=== PATIENT | female | born 1965 | race African-American/Black ===

== ENCOUNTER 2016-10-23 09:32 | Emergency (ER) | payer OTHER ==
[~2016-10-23] VITALS: Ht 167.6 cm; Wt 75.0 kg
[~2016-10-23 09:32] MED LIST: HYOS0.129 PO; ZOFR4TAB3 SL
[2016-10-23 09:33] VITALS: BP 127/67; PULSE 80; RESP 15; TEMP 98.2; O2SAT 98
[2016-10-23] MEDS ORDERED: SODIUM CHLOR 0.9% 1000 ML INJ 1,000 ML IV SCH (10:11)
[2016-10-23] MEDS ORDERED: SODIUM CHLORIDE 0.9% FLUSH 10 ML FLUSH IV FLUSH PRN (10:15)
[2016-10-23] MEDS ORDERED: PANTOPRAZOLE SODIUM 40 MG VIAL IVP ONE (10:15)
[2016-10-23] MEDS ORDERED: LIDOCAINE VISCOUS 2% SOLN 15 ML UDC PO ONE (10:15)
[2016-10-23] MEDS ORDERED: ONDANSETRON HCL 4 MG/2 ML VIAL IVP ONE (10:15)
[2016-10-23] MEDS ORDERED: ALUMINUM/MAGNESIUM/SIMETH 30 ML CUP PO ONE (10:15)
--- NOTE | 2016-10-23 10:28 | PD ---
HPI Chief Complaint: Dizziness Time Seen by Provider: 10:08 Travel History International Travel<30 days: No Contact w/Intl Traveler<30days: No Traveled to known affect area: No History of Present Illness HPI Patient is a 51-year-old female with reported history of peptic ulcer who presents the emergency department with complaint of nausea, vomiting and lightheadedness. Patient states that she is been ill for the last 3 days with fairly persistent nausea, vomiting. She notes minimal abdominal discomfort. This is primarily within the epigastrium. She has not had any hematemesis, hematochezia. Kadi thomas states that approximate 3 years since her last endoscopy. She is no longer currently on an antacid stating that her prescription ran out. She denies any chest pain, shortness of breath. She describes her lightheadedness as feeling dizzy when she stands up quickly, no vertigo. PFSH Past Medical History Cancer: Yes (cervical) Diminished Hearing: No Gastrointestinal Disorders: Yes (GALLSTONES) GERD: Yes Immunizations Current: No Ulcer: Yes : 3 Para: 3 Dilation and Curettage (D&C): Yes Tubal Ligation: Yes Past Surgical History Cholecystectomy: Yes Gynecologic Surgery: Yes (CONE BX?) Social History Alcohol Use: Yes (OCCAS) Tobacco Use: Yes (5 CIGS/DAY) Substance Use: No Allergies-Medications (Allergen,Severity, Reaction): Coded Allergies: No Known Allergies (Verified , 10/23/16) Reported Meds & Prescriptions Reported Meds & Active Scripts Active No Active Prescriptions or Reported Medications Review of Systems Except as stated in HPI: all other systems reviewed are Neg Physical Exam Narrative GENERAL: Well-appearing female in no acute distress SKIN: Warm and dry. HEAD: Normocephalic. EYES: No scleral icterus. No injection or drainage. ENT: Mucous membranes pink and moist. NECK supple CARDIOVASCULAR: Regular rate and rhythm. No murmur appreciated. RESPIRATORY: No accessory muscle use. Clear to auscultation. Breath sounds equal bilaterally. GASTROINTESTINAL: Abdomen soft, non-tender, nondistended. MUSCULOSKELETAL: Normal gait NEUROLOGICAL: Awake and alert. Moves all extremity's normally. Normal speech. PSYCHIATRIC: Appropriate mood and affect; insight and judgment normal. Data Data Last Documented VS Vital Signs Date Time Temp Pulse Resp B/P Pulse Ox O2 Delivery O2 Flow Rate FiO2 10/23/16 10:25 16 Room Air 10/23/16 09:33 98.2 80 127/67 98 Orders Electrocardiogram (10/23/16 ) Complete Blood Count With Diff (10/23/16 10:11) Comprehensive Metabolic Panel (10/23/16 10:11) Lipase (10/23/16 10:11) Iv Access Insert/Monitor (10/23/16 10:11) Ondansetron Inj (Zofran Inj) (10/23/16 10:15) Sodium Chlor 0.9% 1000 Ml Inj (Ns 1000 M (10/23/16 10:11) Sodium Chloride 0.9% Flush (Ns Flush) (10/23/16 10:15) Pantoprazole Inj (Protonix Inj) (10/23/16 10:15) Al-Mag Hy-Si 40-40-4 Mg/Ml Liq (Mag-Al P (10/23/16 10:15) Lidocaine 2% Viscous (Xylocaine 2% Visco (10/23/16 10:15) Labs Laboratory Tests Test 10/23/16 10:40 White Blood Count 6.1 TH/MM3 Red Blood Count 4.52 MIL/MM3 Hemoglobin 14.5 GM/DL Hematocrit 42.0 % Mean Corpuscular Volume 92.8 FL Mean Corpuscular Hemoglobin 32.1 PG Mean Corpuscular Hemoglobin 34.6 % Concent Red Cell Distribution Width 12.7 % Platelet Count 302 TH/MM3 Mean Platelet Volume 6.8 FL Neutrophils (%) (Auto) 43.1 % Lymphocytes (%) (Auto) 45.7 % Monocytes (%) (Auto) 7.9 % Eosinophils (%) (Auto) 2.7 % Basophils (%) (Auto) 0.6 % Neutrophils # (Auto) 2.6 TH/MM3 Lymphocytes # (Auto) 2.8 TH/MM3 Monocytes # (Auto) 0.5 TH/MM3 Eosinophils # (Auto) 0.2 TH/MM3 Basophils # (Auto) 0.0 TH/MM3 CBC Comment DIFF FINAL Differential Comment Sodium Level 143 MEQ/L Potassium Level 3.7 MEQ/L Chloride Level 109 MEQ/L Carbon Dioxide Level 27.2 MEQ/L Anion Gap 7 MEQ/L Blood Urea Nitrogen 8 MG/DL Creatinine 0.73 MG/DL Estimat Glomerular Filtration 102 ML/MIN Rate Random Glucose 78 MG/DL Calcium Level 9.0 MG/DL Total Bilirubin 0.6 MG/DL Aspartate Amino Transf 16 U/L (AST/SGOT) Alanine Aminotransferase 27 U/L (ALT/SGPT) Alkaline Phosphatase 46 U/L Total Protein 7.0 GM/DL Albumin 3.7 GM/DL Lipase 157 U/L MDM Medical Decision Making Medical Screen Exam Complete: Yes Emergency Medical Condition: Yes Medical Record Reviewed: Yes Differential Diagnosis 51-year-old female with history of PUD, GERD here with complaint of 3 days of nausea, vomiting and slight epigastric discomfort with dizziness/ lightheadedness. Differential includes gastritis, pancreatitis, peptic ulcer disease, less likely hepatobiliary pathology, significant dehydration, electrolyte abnormality. Narrative Course Patient placed on monitor, IV established and blood obtained. A twelve-lead EKG shows sinus rhythm without notable ST abnormalities, normal intervals. Patient was given 1 L normal saline bolus, 4 mg Zofran, IV PPI and GI cocktail. CBC, CMP, lipase unremarkable. Patient felt improved and was able to tolerate oral challenge. Will to be discharged home with PPI. Diagnosis Primary Impression: Gastritis Qualified Code: K29.00 - Acute gastritis without hemorrhage, unspecified gastritis type Additional Impression: Nausea & vomiting Qualified Code: R11.2 - Non-intractable vomiting with nausea, unspecified vomiting type Referrals: Primary Care Physician as needed Patient Instructions: Diet for Stomach Ulcers and Gastritis (ED), Gastritis (ED ), General Instructions Additional Instructions: Antacid as prescribed. Follow-up with primary care provider symptoms persist and return to the ER for the warning signs discussed. Med/Other Pt SpecificInfo: Prescription(s) given Scripts Omeprazole 40 Mg Cap40 Mg PO DAILY #30 CAP Ref 0 Prov:Nan Reeder MD 10/23/16 Disposition: 01 DISCHARGE HOME Condition: Stable Nan Reeder MD Oct 23, 2016 10:28
[2016-10-23 10:54] LABS: AUTOMATED NEUTROPHIL # 2.6 TH/MM3 (1.8-7.7); BASOPHIL % 0.6 % (0.0-2.0); EOSINOPHIL # 0.2 TH/MM3 (0-0.4); EOSINOPHIL % 2.7 % (0.0-4.0); HEMO FLAGS DIFF FINAL; LYMPH % 45.7 % (9.0-44.0); LYMPHOCYTE # 2.8 TH/MM3 (1.0-4.8); MEAN CELL VOLUME 92.8 FL (80.0-100.0); MEAN CORPUSCULAR HEMOGLOBIN 32.1 PG (27.0-34.0); MEAN CORPUSCULAR HGB CONC 34.6 % (32.0-36.0); MONO % 7.9 % (0.0-8.0); NEUT % 43.1 % (16.0-70.0); PLATELET COUNT 302 TH/MM3 (150-450); RED BLOOD COUNT 4.52 MIL/MM3 (4.00-5.30); RED CELL DISTRIBUTION WIDTH 12.7 % (11.6-17.2); WHITE BLOOD COUNT 6.1 TH/MM3 (4.0-11.0)
[2016-10-23 11:17] LABS: ALT (GPT) 27 U/L (10-53); ANION GAP 7 MEQ/L (5-15); AST (GOT) 16 U/L (15-37); BICARBONATE 27.2 MEQ/L (21.0-32.0); BLOOD UREA NITROGEN 8 MG/DL (7-18); CHLORIDE 109 MEQ/L (98-107); GLOMERULAR FILTRATION RATE 102 ML/MIN (>89); POTASSIUM 3.7 MEQ/L (3.5-5.1); SODIUM (NA) 143 MEQ/L (136-145)
[2016-10-23 11:19] LABS: ALKALINE PHOSPHATASE 46 U/L (45-117); TOTAL BILIRUBIN ADULT 0.6 MG/DL (0.2-1.0)
[2016-10-23] MEDS ORDERED: OMEP40CA2 PO (11:22)
[2016-10-23 11:38] VITALS: BP 112/63; PULSE 67; RESP 20; O2SAT 95
--- NOTE | 2016-10-24 10:57 | EKG ---
Date Performed: 10/23/2016 Time Performed: 10:20:05 PTAGE: 51 years EKG: Sinus rhythm NORMAL ECG PREVIOUS TRACING : 04/26/2001 12.04 DOCTOR: Jay Lew Interpretating Date/Time 10/24/2016 10:55:28
== END 2016-10-23 11:52 | disposition home or self-care (01) ==
LOC: NEPB 09:32
DX: K29.00 Acute gastritis without bleeding (principal)
CPT/HCPCS: 80053; 83690; 85025; 93005; 96374; 96375; 99284; C9113; J2405; J7030

== ENCOUNTER 2017-03-07 18:54 | Emergency (ER) | payer OTHER ==
[~2017-03-07] VITALS: Ht 167.6 cm; Wt 65.0 kg
[~2017-03-07 18:54] MED LIST changes: -HYOS0.129 PO; +OMEP40CA2 PO; -ZOFR4TAB3 SL
[2017-03-07 18:58] VITALS: BP 114/70; PULSE 83; RESP 16; TEMP 97.9; O2SAT 100
[2017-03-07] MEDS ORDERED: SODIUM CHLOR 0.9% 1000 ML INJ 1,000 ML IV ONE (19:22)
[2017-03-07 19:29] VITALS: BP 110/67; PULSE 70; RESP 16; O2SAT 99
[2017-03-07] MEDS ORDERED: diphenhydrAMINE HCL 50 MG/ML VIAL IVP ONE (19:30)
[2017-03-07] MEDS ORDERED: METOCLOPRAMIDE HCL 10 MG/2 ML VIAL IVP ONE (19:30)
[2017-03-07] MEDS ORDERED: PANTOPRAZOLE SODIUM 40 MG VIAL IV PUSH ONE (19:30)
[2017-03-07] MEDS ORDERED: ACETAMINOPHEN 325 MG TAB PO ONE (19:30)
--- NOTE | 2017-03-07 19:38 | PD ---
HPI Chief Complaint: GI Complaint Time Seen by Provider: 21:20 Travel History International Travel<30 days: No Contact w/Intl Traveler<30days: No Traveled to known affect area: No History of Present Illness HPI 51-year-old female with history of peptic ulcer disease resents for evaluation of nausea, vomiting, headache. She reports that for the past 3 days she has had approximately 2-3 episodes of nonbloody nonbilious emesis. She has also had a right-sided frontal headache which she rates as a 6 out of 10 on the pain scale. She denies any thunderclap nature of this headache. She describes it as a throbbing sensation which is improved with use of [id number] BC powder. She feels that the nausea and vomiting are related to her peptic ulcer disease. She reports that she has had this issue in the past. She quit taking her prescribed omeprazole one month ago because she feels that she does not have the time to take it. She denies blurred vision, numbness or tingling or weakness in the face with the extremities, chest pain or shortness of breath, fevers or chills, diarrhea or constipation, recent dietary changes. She has no other complaints at this time. PFSH Past Medical History Cancer: Yes (cervical) Diminished Hearing: No Gastrointestinal Disorders: Yes (GALLSTONES) GERD: Yes Immunizations Current: Yes Ulcer: Yes ?: Not : 3 Para: 3 Miscarriage: 0 : 0 Dilation and Curettage (D&C): Yes Tubal Ligation: Yes Past Surgical History Cholecystectomy: Yes Gynecologic Surgery: Yes ([facility] BX) Social History Alcohol Use: No Tobacco Use: Yes (1 PACK EVERY 2 WEEKS) Substance Use: No Allergies-Medications (Allergen,Severity, Reaction): Coded Allergies: No Known Allergies (Verified , 01/06/17) Reported Meds & Prescriptions Reported Meds & Active Scripts Active Zofran (Ondansetron HCl) 4 Mg Tab 4 Mg PO Q6HR PRN Omeprazole 40 Mg Cap 40 Mg PO DAILY Review of Systems Except as stated in HPI: all other systems reviewed are Neg Physical Exam Narrative GENERAL: Pleasant well-developed well-nourished female in no acute distress resting comfortably in hospital bed. SKIN: Warm and dry. HEAD: Atraumatic. Normocephalic. EYES: Pupils equal and round. No scleral icterus. No injection or drainage. ENT: No nasal bleeding or discharge. Mucous membranes pink and moist. NECK: Trachea midline. No JVD. CARDIOVASCULAR: Regular rate and rhythm. No murmur appreciated. RESPIRATORY: No accessory muscle use. Clear to auscultation. Breath sounds equal bilaterally. GASTROINTESTINAL: Abdomen soft, non-tender, nondistended. Hepatic and splenic margins not palpable. MUSCULOSKELETAL: No obvious deformities. No edema. NEUROLOGICAL: Awake and alert. No obvious cranial nerve deficits. Motor grossly within normal limits. Normal speech. PSYCHIATRIC: Appropriate mood and affect; insight and judgment normal. Data Data Last Documented VS Vital Signs Date Time Temp Pulse Resp B/P Pulse Ox O2 Delivery O2 Flow Rate FiO2 03/07/17 19:29 70 16 110/67 99 Room Air 03/07/17 18:58 97.9 Orders Complete Blood Count With Diff (03/07/17 19:22) Comprehensive Metabolic Panel (03/07/17 19:22) Iv Access Insert/Monitor (03/07/17 19:22) Acetaminophen (Tylenol) (03/07/17 19:30) Diphenhydramine Inj (Benadryl Inj) (03/07/17 19:30) Metoclopramide Inj (Reglan Inj) (03/07/17 19:30) Sodium Chlor 0.9% 1000 Ml Inj (Ns 1000 M (03/07/17 19:22) Lipase (03/07/17 19:22) Pantoprazole Inj (Protonix Inj) (03/07/17 19:30) Labs Laboratory Tests Test 03/07/17 20:12 White Blood Count 8.5 TH/MM3 Red Blood Count 4.36 MIL/MM3 Hemoglobin 14.0 GM/DL Hematocrit 40.7 % Mean Corpuscular Volume 93.2 FL Mean Corpuscular Hemoglobin 32.0 PG Mean Corpuscular Hemoglobin 34.4 % Concent Red Cell Distribution Width 12.3 % Platelet Count 339 TH/MM3 Mean Platelet Volume 6.8 FL Neutrophils (%) (Auto) 45.2 % Lymphocytes (%) (Auto) 44.5 % Monocytes (%) (Auto) 7.7 % Eosinophils (%) (Auto) 1.7 % Basophils (%) (Auto) 0.9 % Neutrophils # (Auto) 3.9 TH/MM3 Lymphocytes # (Auto) 3.8 TH/MM3 Monocytes # (Auto) 0.7 TH/MM3 Eosinophils # (Auto) 0.1 TH/MM3 Basophils # (Auto) 0.1 TH/MM3 CBC Comment DIFF FINAL Differential Comment Sodium Level 140 MEQ/L Potassium Level 3.8 MEQ/L Chloride Level 105 MEQ/L Carbon Dioxide Level 28.6 MEQ/L Anion Gap 6 MEQ/L Blood Urea Nitrogen 12 MG/DL Creatinine 0.91 MG/DL Estimat Glomerular Filtration 79 ML/MIN Rate Random Glucose 66 MG/DL Calcium Level 9.0 MG/DL Total Bilirubin 0.4 MG/DL Aspartate Amino Transf 19 U/L (AST/SGOT) Alanine Aminotransferase 26 U/L (ALT/SGPT) Alkaline Phosphatase 52 U/L Total Protein 6.9 GM/DL Albumin 3.6 GM/DL Lipase 173 U/L MDM Medical Decision Making Medical Screen Exam Complete: Yes Emergency Medical Condition: Yes Medical Record Reviewed: Yes Differential Diagnosis Gastritis, peptic ulcer disease, gastroenteritis, migraine without aura, temporal arteritis, subarachnoid hemorrhage, intracranial mass, pseudotumor cerebri, cluster headache, meningitis, encephalitis, pancreatitis, dehydration, electrolyte abnormality Narrative Course 51-year-old female history of peptic ulcer disease, noncompliant with her prescribed proton pump inhibitors, presents now with 2-3 days of 3 episodes of nonbloody emesis today as well as a right-sided frontal headache. She rates a 6 out of 10 on a pain scale. Physical examination is very reassuring. She has no focal neurologic deficits. I don't suspect subarachnoid hemorrhage, temporal arteritis as an etiology. She does not appear acutely dehydrated. Her abdomen is soft and nontender. She reports that she has had similar symptoms in the past which she has attributed to her peptic ulcer disease. She is not currently having any abdominal pain but she does report that she had some in the epigastrium/left upper quadrant yesterday. Plan is for basic lab work, IV fluids, Reglan, Benadryl, Tylenol. She will be given IV Protonix. She will be reassessed. 2100: Upon reexamination the patient feels significantly improved. Her headache has resolved. Her lab work is unremarkable. The patient will be discharged with a short course of Zofran to use as needed for nausea. Recommended restarting her prescribed Protonix. Diagnosis Primary Impression: Nausea & vomiting Qualified Code: R11.2 - Non-intractable vomiting with nausea, unspecified vomiting type Additional Impression: Headache Qualified Code: R51 - Acute nonintractable headache, unspecified headache type Additional Instructions: Zofran for nausea. Take Protonix as prescribed. Stay well hydrated. Return for any emergent medical conditions. Med/Other Pt SpecificInfo: Prescription(s) given Scripts Ondansetron (Zofran)4 Mg Tab4 Mg PO Q6HR PRN (NAUSEA OR VOMITING) #10 TAB Ref 0 Prov:Tegan Hernandez MD 03/07/17 Disposition: 01 DISCHARGE HOME Condition: Stable [address] Lane Mar 07, 2017 19:38
[2017-03-07 20:29] LABS: AUTOMATED NEUTROPHIL # 3.9 TH/MM3 (1.8-7.7); BASOPHIL # 0.1 TH/MM3 (0-0.2); BASOPHIL % 0.9 % (0.0-2.0); EOSINOPHIL # 0.1 TH/MM3 (0-0.4); EOSINOPHIL % 1.7 % (0.0-4.0); HEMATOCRIT 40.7 % (35.0-46.0); HEMO FLAGS DIFF FINAL; LYMPH % 44.5 % (9.0-44.0); LYMPHOCYTE # 3.8 TH/MM3 (1.0-4.8); MEAN CELL VOLUME 93.2 FL (80.0-100.0); MEAN CORPUSCULAR HGB CONC 34.4 % (32.0-36.0); MONO % 7.7 % (0.0-8.0); NEUT % 45.2 % (16.0-70.0); PLATELET COUNT 339 TH/MM3 (150-450); RED BLOOD COUNT 4.36 MIL/MM3 (4.00-5.30); RED CELL DISTRIBUTION WIDTH 12.3 % (11.6-17.2); WHITE BLOOD COUNT 8.5 TH/MM3 (4.0-11.0)
[2017-03-07 20:56] LABS: ALT (GPT) 26 U/L (10-53)
[2017-03-07 20:57] LABS: ANION GAP 6 MEQ/L (5-15); AST (GOT) 19 U/L (15-37); BICARBONATE 28.6 MEQ/L (21.0-32.0); BLOOD UREA NITROGEN 12 MG/DL (7-18); CHLORIDE 105 MEQ/L (98-107); GLOMERULAR FILTRATION RATE 79 ML/MIN (>89); POTASSIUM 3.8 MEQ/L (3.5-5.1); SODIUM (NA) 140 MEQ/L (136-145)
[2017-03-07 20:58] LABS: ALKALINE PHOSPHATASE 52 U/L (45-117); TOTAL BILIRUBIN ADULT 0.4 MG/DL (0.2-1.0)
[2017-03-07] MEDS ORDERED: ZOFR4TAB PO (21:01)
== END 2017-03-07 21:47 | disposition home or self-care (01) ==
LOC: NEPD 18:54
DX: R11.2 Nausea with vomiting, unspecified (principal); R51 Headache; F17.210 Nicotine dependence, cigarettes, uncomplicated; K21.9 Gastro-esophageal reflux disease without esophagitis
CPT/HCPCS: 80053; 83690; 85025; 96361; 96374; 96375; 99284; C9113; J1200; J2765; J7030

== ENCOUNTER 2017-08-17 09:12 | Emergency (ER) | payer BC, OTHER ==
[~2017-08-17] VITALS: Ht 165.1 cm; Wt 75.0 kg
[~2017-08-17 09:12] MED LIST changes: +ZOFR4TAB PO
[2017-08-17 09:13] VITALS: BP 120/84; PULSE 83; RESP 16; TEMP 98.7; O2SAT 100
[2017-08-17] MEDS ORDERED: ZANT150T2 PO (09:28)
[2017-08-17] MEDS ORDERED: SODIUM CHLOR 0.9% 1000 ML INJ 1,000 ML IV ONE (09:58)
[2017-08-17] MEDS ORDERED: SODIUM CHLORIDE 0.9% FLUSH 10 ML FLUSH IVF PRN (10:00)
[2017-08-17] MEDS ORDERED: ONDANSETRON HCL 4 MG/2 ML VIAL IV PUSH ONE (10:00)
--- NOTE | 2017-08-17 10:09 | PD ---
HPI Chief Complaint: GI Complaint Time Seen by Provider: 09:54 Travel History International Travel<30 days: No Contact w/Intl Traveler<30days: No Traveled to known affect area: No History of Present Illness HPI The patient was seen and examined in the presence of the nurse. She complains of nausea and vomiting. Duration 3 days. Severity is moderate. No diarrhea. No abdominal pain or fever. No alleviating factors. No exacerbating factors. She does have history of peptic ulcer disease and thinks that may be related. PFSH Past Medical History Cancer: Yes (cervical) Diminished Hearing: No Gastrointestinal Disorders: Yes (GALLSTONES) GERD: Yes Immunizations Current: Yes Ulcer: Yes Tetanus Vaccination: > 5 Years Influenza Vaccination: No ?: Not : 3 Para: 3 Miscarriage: 0 : 0 Dilation and Curettage (D&C): Yes Tubal Ligation: Yes Past Surgical History Cholecystectomy: Yes Gynecologic Surgery: Yes (CON[facility] BX) Social History Alcohol Use: No Tobacco Use: Yes (1 PACK EVERY 1 WEEK) Substance Use: No Allergies-Medications (Allergen,Severity, Reaction): Coded Allergies: No Known Allergies (Verified Adverse Reaction, Unknown, 08/17/17) Reported Meds & Prescriptions Reported Meds & Active Scripts Active Zofran (Ondansetron HCl) 4 Mg Tab 4 Mg PO Q6HR PRN Omeprazole 40 Mg Cap 40 Mg PO DAILY Reported Zantac (Ranitidine HCl) 150 Mg Tab 75 Mg PO DAILY Review of Systems General / Constitutional: No: Fever Eyes: No: Visual changes HENT: No: Headaches Cardiovascular: No: Chest Pain or Discomfort Respiratory: No: Shortness of Breath Gastrointestinal: Positive: Nausea, Vomiting, No: Abdominal Pain Genitourinary: No: Dysuria Musculoskeletal: No: Pain Skin: No Rash Neurologic: No: Weakness Psychiatric: No: Depression Endocrine: No: Polydipsia Hematologic/Lymphatic: No: Easy Bruising Physical Exam Narrative GENERAL: Well-nourished, well-developed patient in no apparent distress. SKIN: Focused skin assessment reveals no rash and nodules. Skin is Warm and dry. HEAD: Atraumatic. Normocephalic. EYES: Pupils equal and round. No scleral icterus. No injection or drainage. ENT: No nasal bleeding or discharge. Mucous membranes pink and moist. NECK: Trachea midline. No JVD. CARDIOVASCULAR: Regular rate and rhythm. No murmur appreciated. RESPIRATORY: No accessory muscle use. Clear to auscultation. Breath sounds equal bilaterally. GASTROINTESTINAL: Abdomen soft, non-tender, nondistended. Hepatic and splenic margins not palpable. MUSCULOSKELETAL: No obvious deformities. No clubbing. No cyanosis. No edema. NEUROLOGICAL: Awake and alert. No obvious cranial nerve deficits. Motor grossly within normal limits. Normal speech. PSYCHIATRIC: Appropriate mood and affect; insight and judgment normal. Data Data Last Documented VS Vital Signs Date Time Temp Pulse Resp B/P (MAP) Pulse Ox O2 Delivery O2 Flow Rate FiO2 08/17/17 09:13 98.7 83 16 120/84 (96) 100 Orders Orders Complete Blood Count With Diff (08/17/17 09:58) Basic Metabolic Panel (Bmp) (08/17/17 09:58) Iv Access Insert/Monitor (08/17/17 09:58) Ondansetron Inj (Zofran Inj) (08/17/17 10:00) Sodium Chlor 0.9% 1000 Ml Inj (Ns 1000 M (08/17/17 09:58) Sodium Chloride 0.9% Flush (Ns Flush) (08/17/17 10:00) Labs Laboratory Tests Test 08/17/17 10:10 White Blood Count 6.0 TH/MM3 Red Blood Count 4.62 MIL/MM3 Hemoglobin 15.1 GM/DL Hematocrit 44.1 % Mean Corpuscular Volume 95.4 FL Mean Corpuscular Hemoglobin 32.6 PG Mean Corpuscular Hemoglobin Concent 34.2 % Red Cell Distribution Width 12.7 % Platelet Count 338 TH/MM3 Mean Platelet Volume 6.6 FL Neutrophils (%) (Auto) 42.9 % Lymphocytes (%) (Auto) 46.4 % Monocytes (%) (Auto) 6.2 % Eosinophils (%) (Auto) 3.9 % Basophils (%) (Auto) 0.6 % Neutrophils # (Auto) 2.6 TH/MM3 Lymphocytes # (Auto) 2.8 TH/MM3 Monocytes # (Auto) 0.4 TH/MM3 Eosinophils # (Auto) 0.2 TH/MM3 Basophils # (Auto) 0.0 TH/MM3 CBC Comment DIFF FINAL Differential Comment Blood Urea Nitrogen 13 MG/DL Creatinine 0.85 MG/DL Random Glucose 82 MG/DL Calcium Level 9.3 MG/DL Sodium Level 140 MEQ/L Potassium Level 3.4 MEQ/L Chloride Level 107 MEQ/L Carbon Dioxide Level 25.5 MEQ/L Anion Gap 8 MEQ/L Estimat Glomerular Filtration Rate 85 ML/MIN MDM Medical Decision Making Medical Screen Exam Complete: Yes Emergency Medical Condition: Yes Medical Record Reviewed: Yes Differential Diagnosis Gastroenteritis, colitis, ulcer disease Narrative Course I have reviewed the patient's electronic medical record. She's been here several times before for vomiting. IV placed I gave her IV Zofran and 1 L normal saline IV bolus CBC is normal Metabolic profile normal except for minor hypokalemia On recheck she is doing well. She is euvolemic Zofran prescribed Diagnosis Primary Impression: Nausea & vomiting Qualified Codes: R11.2 - Nausea with vomiting, unspecified Additional Instructions: The patient was advised to follow up with their physician and return if they worsen. Med/Other Pt SpecificInfo: Prescription(s) given Scripts Ondansetron (Zofran) 4 Mg Tab 4 MG PO Q6HR Y for NAUSEA OR VOMITING, #10 TAB 0 Refills Prov: Derik Frias MD 08/17/17 Disposition: 01 DISCHARGE HOME Condition: Stable Derik Frias MD Aug 17, 2017 10:09
[2017-08-17 10:27] LABS: AUTOMATED NEUTROPHIL # 2.6 TH/MM3 (1.8-7.7); BASOPHIL % 0.6 % (0.0-2.0); EOSINOPHIL # 0.2 TH/MM3 (0-0.4); EOSINOPHIL % 3.9 % (0.0-4.0); HEMATOCRIT 44.1 % (35.0-46.0); HEMOGLOBIN 15.1 GM/DL (11.6-15.3); LYMPH % 46.4 % (9.0-44.0); LYMPHOCYTE # 2.8 TH/MM3 (1.0-4.8); MEAN CELL VOLUME 95.4 FL (80.0-100.0); MEAN CORPUSCULAR HEMOGLOBIN 32.6 PG (27.0-34.0); MEAN CORPUSCULAR HGB CONC 34.2 % (32.0-36.0); MEAN PLATELET VOLUME 6.6 FL (7.0-11.0); MONO % 6.2 % (0.0-8.0); MONOCYTE # 0.4 TH/MM3 (0-0.9); NEUT % 42.9 % (16.0-70.0); PLATELET COUNT 338 TH/MM3 (150-450); RED BLOOD COUNT 4.62 MIL/MM3 (4.00-5.30); RED CELL DISTRIBUTION WIDTH 12.7 % (11.6-17.2)
[2017-08-17 10:41] LABS: BICARBONATE 25.5 MEQ/L (21.0-32.0); CALCIUM 9.3 MG/DL (8.5-10.1); CREATININE 0.85 MG/DL (0.50-1.00)
[2017-08-17 11:30] VITALS: BP 117/69; PULSE 80; RESP 19; O2SAT 99
[2017-08-17] MEDS ORDERED: ZOFR4TAB PO (11:33)
== END 2017-08-17 12:28 | disposition home or self-care (01) ==
LOC: NEPE 09:12
DX: R11.2 Nausea with vomiting, unspecified (principal); K21.9 Gastro-esophageal reflux disease without esophagitis; F17.200 Nicotine dependence, unspecified, uncomplicated; Z87.11 Personal history of peptic ulcer disease
CPT/HCPCS: 80048; 85025; 96361; 96374; 99284; J2405; J7030

== ENCOUNTER 2017-12-30 19:40 | Observation (INO) | payer SELFPAY ==
[~2017-12-30] VITALS: Ht 167.6 cm; Wt 75.0 kg
[~2017-12-30 19:40] MED LIST changes: +ZANT150T2 PO
[2017-12-30 19:49] VITALS: BP 138/91; PULSE 106; RESP 20; TEMP 97.9; O2SAT 100
[2017-12-30] MEDS ORDERED: ASPIRIN 325 MG TAB PO ONE (20:15)
[2017-12-30] MEDS ORDERED: SODIUM CHLORIDE 0.9% FLUSH 10 ML FLUSH IVF PRN (20:15)
[2017-12-30 20:20] VITALS: BP 115/77; PULSE 91; RESP 18; O2SAT 100
[2017-12-30] MEDS ORDERED: NITROGLYCERIN 0.4 MG SL 25 TABS/BTL SL ONE (20:30)
--- NOTE | 2017-12-30 20:39 | RADRPT ---
EXAM DATE: 12/30/2017 8:36 PM EDT AGE/SEX: 52 years / Female INDICATIONS: Chest pain CLINICAL DATA: This is the patient's initial encounter. Patient reports that signs and symptoms have been present for 1 day and indicates a pain score of 3/10. MEDICAL/SURGICAL HISTORY: Chronic obstructive pulmonary disease. None. COMPARISON: No prior [facility] exams available for comparison. FINDINGS: Portable AP view of the chest demonstrates a normal-sized cardiac silhouette. The lungs demonstrate n o definite effusion, consolidation, or pneumothorax. The bones and soft tissues demonstrate no acute finding. EKG lines overlie the patient. CONCLUSION: No acute cardiopulmonary abnormality is identified. Electronically signed by: Harry Mattson MD 12/30/2017 8:37 PM EDT
[2017-12-30 21:01] LABS: BASOPHIL % 0.6 % (0.0-2.0); EOSINOPHIL # 0.2 TH/MM3 (0-0.4); EOSINOPHIL % 2.1 % (0.0-4.0); HEMATOCRIT 41.7 % (35.0-46.0); HEMOGLOBIN 14.5 GM/DL (11.6-15.3); LYMPH % 52.1 % (9.0-44.0); MEAN CELL VOLUME 92.4 FL (80.0-100.0); MEAN CORPUSCULAR HEMOGLOBIN 32.2 PG (27.0-34.0); MEAN CORPUSCULAR HGB CONC 34.8 % (32.0-36.0); MONO % 6.1 % (0.0-8.0); MONOCYTE # 0.5 TH/MM3 (0-0.9); NEUT % 39.1 % (16.0-70.0); PLATELET COUNT 323 TH/MM3 (150-450); RED BLOOD COUNT 4.51 MIL/MM3 (4.00-5.30); RED CELL DISTRIBUTION WIDTH 12.6 % (11.6-17.2); WHITE BLOOD COUNT 7.6 TH/MM3 (4.0-11.0)
[2017-12-30 21:29] LABS: ALBUMIN 3.7 GM/DL (3.4-5.0); AST (GOT) 18 U/L (15-37); BICARBONATE 19.7 MEQ/L (21.0-32.0); BLOOD UREA NITROGEN 12 MG/DL (7-18); CALCIUM 9.1 MG/DL (8.5-10.1); CHLORIDE 110 MEQ/L (98-107); GLOMERULAR FILTRATION RATE 63 ML/MIN (>89); GLUCOSE,RANDOM 103 MG/DL (74-106); SODIUM (NA) 141 MEQ/L (136-145)
[2017-12-30 21:30] LABS: ALT (GPT) 28 U/L (10-53)
[2017-12-30 21:34] LABS: ALKALINE PHOSPHATASE 51 U/L (45-117); TOTAL BILIRUBIN ADULT 0.4 MG/DL (0.2-1.0); TOTAL PROTEIN 7.2 GM/DL (6.4-8.2); TROPONIN I LESS THAN 0.02 NG/ML (0.02-0.05)
[2017-12-30 21:40] LABS: PROTHROMBIN TIME - PATIENT 10.4 SEC (9.8-11.6)
--- NOTE | 2017-12-30 21:43 | PD ---
HPI Chief Complaint: Chest Pain Time Seen by Provider: 20:10 Travel History International Travel<30 days: No Contact w/Intl Traveler<30days: No Traveled to known affect area: No History of Present Illness HPI 52-year-old female that presents to the ED for evaluation of chest pain and shortness of breath. Per patient she has had this about 30 minutes before coming. Per patient she was at work when the pain started. Per patient the pain is sharp and is 7 out of 10. Denies any history of this in the past. Denies any nausea or vomiting. No bowel movement issues. No drug abuse but states having a history of smoking. She states that the pain stays mostly in the chest as well as radiate to the back. Denies any headache. No blurred vision or double vision. Has not taken anything for this. Nothing seems to make it better or worse. She did not took anything for this. She does have a history of peptic ulcer disease and takes medications for this but states that this feels different. No abdominal pain. No bowel movement or urinary issues. No recent travel. Denies possibility of . No history of heart disease on herself. No recent travel or surgeries. PFSH Past Medical History Cancer: Yes (cervical) Diminished Hearing: No Gastrointestinal Disorders: Yes (GALLSTONES) GERD: Yes Immunizations Current: Yes Ulcer: Yes Tetanus Vaccination: Unknown ?: Not : 3 Para: 3 Miscarriage: 0 : 0 Dilation and Curettage (D&C): Yes Tubal Ligation: Yes Past Surgical History Cholecystectomy: Yes Gynecologic Surgery: Yes (CON[facility] BX) Social History Alcohol Use: No Tobacco Use: Yes (1 PACK EVERY 1 WEEK) Substance Use: No Allergies-Medications (Allergen,Severity, Reaction): Coded Allergies: No Known Allergies (Verified Adverse Reaction, Unknown, 12/30/17) Reported Meds & Prescriptions Reported Meds & Active Scripts Active Review of Systems Except as stated in HPI: all other systems reviewed are Neg Physical Exam Narrative GENERAL: SKIN: Warm and dry. HEAD: Atraumatic. Normocephalic. EYES: Pupils equal and round. No scleral icterus. No injection or drainage. ENT: No nasal bleeding or discharge. Mucous membranes pink and moist. Tongue is midline. No uvula deviation. NECK: Trachea midline. No JVD. CARDIOVASCULAR: Regular rate and rhythm. No murmurs, S3, S4. RESPIRATORY: No accessory muscle use. Clear to auscultation. Breath sounds equal bilaterally. GASTROINTESTINAL: Abdomen soft, non-tender, nondistended. Hepatic and splenic margins not palpable. MUSCULOSKELETAL: Extremities without clubbing, cyanosis, or edema. No obvious deformities. Full range of motion of the upper and lower extremities bilaterally. 2+ pulses bilaterally. NEUROLOGICAL: Awake and alert. No obvious cranial nerve deficits. Motor grossly within normal limits. Five out of 5 muscle strength in the arms and legs. Normal speech. PSYCHIATRIC: Appropriate mood and affect; insight and judgment normal. Data Data Last Documented VS Vital Signs Date Time Temp Pulse Resp B/P (MAP) Pulse Ox O2 Delivery O2 Flow Rate FiO2 12/30/17 20:20 91 18 115/77 (90) 100 Room Air 12/30/17 19:49 97.9 Orders Orders Electrocardiogram (12/30/17 ) Ckmb (Isoenzyme) Profile (12/30/17 20:15) Complete Blood Count With Diff (12/30/17 20:15) Comprehensive Metabolic Panel (12/30/17 20:15) Magnesium (Mg) (12/30/17 20:15) Troponin I (12/30/17 20:15) Lipase (12/30/17 20:15) Chest, Single Ap (12/30/17 20:15) Ecg Monitoring (12/30/17 20:15) Bilateral Bp Monitoring (12/30/17 20:15) Iv Access Insert/Monitor (12/30/17 20:15) Oximetry (12/30/17 20:15) Oxygen Administration (12/30/17 20:15) Aspirin (Aspirin) (12/30/17 20:15) Sodium Chloride 0.9% Flush (Ns Flush) (12/30/17 20:15) Nitroglycerin Sl (Nitrostat Sl) (12/30/17 20:30) D-Dimer (12/30/17 20:22) Coag Profile (12/30/17 21:21) CKMB (12/30/17 20:40) CKMB% (12/30/17 20:40) Morphine Inj (Morphine Inj) (12/30/17 21:45) Ondansetron Odt (Zofran Odt) (12/30/17 21:45) Ketorolac Inj (Toradol Inj) (12/30/17 22:15) Admit Order (Ed Use Only) (12/30/17 22:18) Labs Laboratory Tests Test 12/30/17 20:40 White Blood Count 7.6 TH/MM3 Red Blood Count 4.51 MIL/MM3 Hemoglobin 14.5 GM/DL Hematocrit 41.7 % Mean Corpuscular Volume 92.4 FL Mean Corpuscular Hemoglobin 32.2 PG Mean Corpuscular Hemoglobin Concent 34.8 % Red Cell Distribution Width 12.6 % Platelet Count 323 TH/MM3 Mean Platelet Volume 7.0 FL Neutrophils (%) (Auto) 39.1 % Lymphocytes (%) (Auto) 52.1 % Monocytes (%) (Auto) 6.1 % Eosinophils (%) (Auto) 2.1 % Basophils (%) (Auto) 0.6 % Neutrophils # (Auto) 3.0 TH/MM3 Lymphocytes # (Auto) 4.0 TH/MM3 Monocytes # (Auto) 0.5 TH/MM3 Eosinophils # (Auto) 0.2 TH/MM3 Basophils # (Auto) 0.0 TH/MM3 CBC Comment DIFF FINAL Differential Comment Prothrombin Time 10.4 SEC Prothromb Time International Ratio 1.0 RATIO Activated Partial Thromboplast Time 26.3 SEC D-Dimer Quantitative (PE/DVT) LESS THAN 0.19 MG/L FEU Blood Urea Nitrogen 12 MG/DL Creatinine 1.10 MG/DL Random Glucose 103 MG/DL Total Protein 7.2 GM/DL Albumin 3.7 GM/DL Calcium Level 9.1 MG/DL Magnesium Level 2.0 MG/DL Alkaline Phosphatase 51 U/L Aspartate Amino Transf (AST/SGOT) 18 U/L Alanine Aminotransferase (ALT/SGPT) 28 U/L Total Bilirubin 0.4 MG/DL Sodium Level 141 MEQ/L Potassium Level 3.5 MEQ/L Chloride Level 110 MEQ/L Carbon Dioxide Level 19.7 MEQ/L Anion Gap 11 MEQ/L Estimat Glomerular Filtration Rate 63 ML/MIN Total Creatine Kinase 123 U/L Creatine Kinase MB 0.7 NG/ML Troponin I LESS THAN 0.02 NG/ML Lipase 130 U/L [facility] Medical Decision Making Medical Screen Exam Complete: Yes Emergency Medical Condition: Yes Medical Record Reviewed: Yes Interpretation(s) EKG shows sinus rhythm with no sign of acute ischemia or arrhythmia read by me and attending. Troponin and CK-MB negative. CBC & BMP Diagram 12/30/17 20:40 Total Protein 7.2, Albumin 3.7, Calcium Level 9.1, Magnesium Level 2.0, Alkaline Phosphatase 51, Aspartate Amino Transf (AST/SGOT) 18, Alanine Aminotransferase (ALT/SGPT) 28, Total Bilirubin 0.4 Last Impressions Chest X-Ray 12/30/172014 Signed Impressions: CONCLUSION: No acute cardiopulmonary abnormality is identified. Differential Diagnosis Chest pain versus a typical chest pain versus ACS versus PE versus peptic ulcer disease versus gastritis Narrative Course 52-year-old female that presents to the ED for evaluation of chest pain. Patient was properly examined and was found to have signs and symptoms hypercoagulable concerning for chest pain. Possible ACS. She does have risk factors. Labs and imaging order. Patient was given aspirin and nitroglycerin with some improvement. She was given morphine as well. Labs and imaging showed no sign of acute disease. Patient's pain improved. This time her condition is for admission for further evaluation. Patient agrees with this. Case discussed with my attending Dr. Will who evaluated the patient herself and agrees with plan. Patient was admitted to chest pain center by me. Orders placed by me. Diagnosis Primary Impression: Chest pain in adult Admitting Information Admitting Physician Requests: Observation Ronak Carlos December 30, 2017 21:43
[2017-12-30] MEDS ORDERED: ONDANSETRON ODT 4 MG TAB PO ONE (21:45)
[2017-12-30] MEDS ORDERED: MORPHINE SULFATE 4 MG/ML INJ IV PUSH ONE (21:45)
--- NOTE | 2017-12-30 22:07 | PD ---
Physical Exam Date Seen by Provider: December 30, 2017 Time Seen by Provider: 22:03 Narrative GENERAL: Well-developed well-nourished female no acute distress no respiratory distress SKIN: Warm and dry. HEAD: Normocephalic. EYES: No scleral icterus. No injection or drainage. NECK: Supple, trachea midline. No JVD or lymphadenopathy. CARDIOVASCULAR: Regular rate and rhythm without murmurs, gallops, or rubs. RESPIRATORY: Breath sounds equal bilaterally. No accessory muscle use. GASTROINTESTINAL: Abdomen soft, non-tender, nondistended. MUSCULOSKELETAL: No cyanosis, or edema. Radial dorsalis pedis pulses 2+ to palpation BACK: Nontender without obvious deformity. No CVA tenderness. Data Data Last Documented VS Vital Signs Date Time Temp Pulse Resp B/P (MAP) Pulse Ox O2 Delivery O2 Flow Rate FiO2 12/30/17 20:20 91 18 115/77 (90) 100 Room Air 12/30/17 19:49 97.9 Orders Orders Electrocardiogram (12/30/17 ) Ckmb (Isoenzyme) Profile (12/30/17 20:15) Complete Blood Count With Diff (12/30/17 20:15) Comprehensive Metabolic Panel (12/30/17 20:15) Magnesium (Mg) (12/30/17 20:15) Troponin I (12/30/17 20:15) Lipase (12/30/17 20:15) Chest, Single Ap (12/30/17 20:15) Ecg Monitoring (12/30/17 20:15) Bilateral Bp Monitoring (12/30/17 20:15) Iv Access Insert/Monitor (12/30/17 20:15) Oximetry (12/30/17 20:15) Oxygen Administration (12/30/17 20:15) Aspirin (Aspirin) (12/30/17 20:15) Sodium Chloride 0.9% Flush (Ns Flush) (12/30/17 20:15) Nitroglycerin Sl (Nitrostat Sl) (12/30/17 20:30) D-Dimer (12/30/17 20:22) Coag Profile (12/30/17 21:21) CKMB (12/30/17 20:40) CKMB% (12/30/17 20:40) Morphine Inj (Morphine Inj) (12/30/17 21:45) Ondansetron Odt (Zofran Odt) (12/30/17 21:45) Ketorolac Inj (Toradol Inj) (12/30/17 22:15) Labs Laboratory Tests Test 12/30/17 20:40 White Blood Count 7.6 TH/MM3 Red Blood Count 4.51 MIL/MM3 Hemoglobin 14.5 GM/DL Hematocrit 41.7 % Mean Corpuscular Volume 92.4 FL Mean Corpuscular Hemoglobin 32.2 PG Mean Corpuscular Hemoglobin Concent 34.8 % Red Cell Distribution Width 12.6 % Platelet Count 323 TH/MM3 Mean Platelet Volume 7.0 FL Neutrophils (%) (Auto) 39.1 % Lymphocytes (%) (Auto) 52.1 % Monocytes (%) (Auto) 6.1 % Eosinophils (%) (Auto) 2.1 % Basophils (%) (Auto) 0.6 % Neutrophils # (Auto) 3.0 TH/MM3 Lymphocytes # (Auto) 4.0 TH/MM3 Monocytes # (Auto) 0.5 TH/MM3 Eosinophils # (Auto) 0.2 TH/MM3 Basophils # (Auto) 0.0 TH/MM3 CBC Comment DIFF FINAL Differential Comment Prothrombin Time 10.4 SEC Prothromb Time International Ratio 1.0 RATIO Activated Partial Thromboplast Time 26.3 SEC D-Dimer Quantitative (PE/DVT) LESS THAN 0.19 MG/L FEU Blood Urea Nitrogen 12 MG/DL Creatinine 1.10 MG/DL Random Glucose 103 MG/DL Total Protein 7.2 GM/DL Albumin 3.7 GM/DL Calcium Level 9.1 MG/DL Magnesium Level 2.0 MG/DL Alkaline Phosphatase 51 U/L Aspartate Amino Transf (AST/SGOT) 18 U/L Alanine Aminotransferase (ALT/SGPT) 28 U/L Total Bilirubin 0.4 MG/DL Sodium Level 141 MEQ/L Potassium Level 3.5 MEQ/L Chloride Level 110 MEQ/L Carbon Dioxide Level 19.7 MEQ/L Anion Gap 11 MEQ/L Estimat Glomerular Filtration Rate 63 ML/MIN Total Creatine Kinase 123 U/L Creatine Kinase MB 0.7 NG/ML Troponin I LESS THAN 0.02 NG/ML Lipase 130 U/L [facility] Medical Record Reviewed: Yes Supervised Visit with JOE: Yes Differential Diagnosis Chest pain, atypical chest pain, ACS, NM, esophageal spasm, uncontrolled hypertension, PE, aortic dissection, peptic ulcer disease, gastritis, biliary colic Narrative Course I, Dr. duenas, have reviewed the advance practice practitioner's documentation and am in agreement, met with the patient face to face, made the diagnosis, and the medical decision making was done by me. *My assessment and Findings: well-developed well-nourished 52-year-old female with 30 minute presentation of retrosternal chest pain with shortness of breath and pain on inspiration without recent long distance travel protracted bedrest or surgical procedure no lower extremity pain or swelling and no recent injury or febrile illness. Patient with history of tobacco use. No reported history of hypertension dyslipidemia or diabetes or premature onset family history of heart disease. Pain 6/10 intensity. Unable to identify relieving factors. Patient treated with aspirin and sublingual nitroglycerin with improvement of symptoms EKG performed sinus rhythm no acute ST elevation or injury pattern change noted chest x-ray no lobar infiltrate lab values found to be normal range specifically troponin I less than 0.02. Patient is 50-year-old female with tobaccoism with retrosternal chest pain will admit to chest pain center per protocol. I agree with plan initiated and carried out for patient evaluation in the emergency department by RYAN] Radha Will MD December 30, 2017 22:07
[2017-12-30] MEDS ORDERED: KETOROLAC TROMETHAMINE 30 MG/ML (IVP) VIAL IV PUSH ONE (22:15)
[2017-12-30] MEDS ORDERED: ACETAMINOPHEN 500 MG CPLT PO PRN (22:30)
[2017-12-30] MEDS ORDERED: SODIUM CHLORIDE 0.9% FLUSH 10 ML FLUSH IV FLUSH PRN (22:30)
[2017-12-30] MEDS ORDERED: ACETAMINOPHEN/HYDROcodone 325 MG/7.5 MG TAB PO PRN (22:30)
[2017-12-30] MEDS ORDERED: MORPHINE SULFATE 4 MG/ML INJ IV PUSH PRN (22:30)
[2017-12-30 23:25] VITALS: BP 109/67; PULSE 63; RESP 18; O2SAT 97
[2017-12-31 00:28] VITALS: BP 92/51; PULSE 69; RESP 16; TEMP 97.9; O2SAT 96
[2017-12-31 00:29] LABS: TROPONIN I LESS THAN 0.02 NG/ML (0.02-0.05)
[2017-12-31 03:08] VITALS: BP 85/53; PULSE 69; RESP 16; TEMP 98.1; O2SAT 95
[2017-12-31 03:17] LABS: TROPONIN I LESS THAN 0.02 NG/ML (0.02-0.05)
[2017-12-31 04:00] VITALS: PULSE 64
[2017-12-31] MEDS ORDERED: NITROGLYCERIN 0.4 MG SL 25 TABS/BTL SL PRN (07:45)
[2017-12-31] MEDS ORDERED: ONDANSETRON ODT 4 MG TAB PO PRN (08:00)
[2017-12-31 08:02] VITALS: PULSE 92
--- NOTE | 2017-12-31 08:30 | HHI.HP ---
HPI Primary Care Physician No Primary Care Physician Chief Complaint Chest pain History of Present Illness 52-year-old female with history of GERD and current smoker presents emergency room for further evaluation of nonexertional chest pain. 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 Quick onset. Location substernal. Characterized as a constant sharp pain. Severity 10/10. No radiation. Associated symptoms included dyspnea and it hurt to take a deep breath. Denied nausea, vomiting, or diaphoresis. Duration 5 hours. No known precipitating or relieving factors. Leaning forward made pain better initially, stating sitting straight up or laying flat made pain worse. denies similar pain in the past. Currently she is chest pain-free. No recent illness, travel, injury, or known sick contacts. Review of Systems General: No fatigue,weakness, fever, chills, recent illness, or change in appetite. Has been her general state of health. HEENT: No FUENTES, no vision changes, no nasal congestion or drainage, no dysphasia, history of GAUTAM states well controlled, requiring as needed antacid rarely CV: As stated above. No current chest pain or pressure. No palpitations, intermittent leg pain, or dizziness RESP: No SOB, cough, wheeze GI: No nausea, vomiting, bowel changes, diarrhea, constipation, pain, distention , melena, or blood in the stool. : No dysuria, urgency, frequency EXT: No lower leg edema, no paraesthesias MS: No discomfort, injury, or change in ROM NEURO: No change in memory, difficulty with balance, LOC, motor/sensory deficits PSYCH: No anxiety, depression, or suicidal ideation SKIN: No rashes, no concerning lesions Past Family Social History Allergies: Coded Allergies: No Known Allergies (Verified Adverse Reaction, Unknown, 12/30/17) Past Medical History GERD, gallstones, peptic ulcer, cervical cancer Past Surgical History Tubal ligation, D&C, cholecystectomy Reported Medications Reported Meds & Active Scripts Active None Active Ordered Medications Current Medications Medications (Trade) Dose Ordered Sig/Tyson Route Start Time Stop Time Status Last Admin (NS Flush) 2 ml UNSCH PRN IV FLUSH 12/30/17 22:30 (NS Flush) 2 ml BID IV FLUSH 12/31/17 09:00 (Tylenol) 500 mg Q4H PRN PO 12/30/17 22:30 (Petal 7.5-325 Mg) 1 tab Q4H PRN PO 12/30/17 22:30 (Morphine Inj) 2 mg Q4H PRN IV PUSH 12/30/17 22:30 (Zofran Odt) 4 mg Q6H PRN PO 12/31/17 08:00 (Nitrostat Sl) 0.4 mg Q5M PRN SL 12/31/17 07:45 (Aspirin) 325 mg DAILY PO 12/31/17 09:00 Family History Noncontributory for early onset cardiovascular disease Social History No known diabetes, hyperlipidemia, or hypertension. Current smoker, 6 cigarettes/daily. Denies any alcohol or illegal drug use. Endorses an active lifestyle, works as a store cashier. Past cardiac testing None Physical Exam Vital Signs Vital Signs Date Time Temp Pulse Resp B/P (MAP) Pulse Ox O2 Delivery O2 Flow Rate FiO2 12/31/17 08:02 92 12/31/17 04:00 64 12/31/17 03:08 98.1 69 16 85/53 (64) 95 12/31/17 00:28 97.9 69 16 92/51 (65) 96 12/31/17 00:15 12/30/17 23:25 97 21 12/30/17 23:25 63 18 109/67 (81) 97 Room Air 12/30/17 20:20 91 18 115/77 (90) 100 Room Air 12/30/17 20:20 18 100 Room Air 12/30/17 19:49 97.9 106 20 138/91 (107) 100 Room Air Physical Exam GENERAL: Alert WN, WD, NAD, pleasant, -Vincentian female HEAD: NC, AT CV: RRR, without murmur, rub, gallop, no JVD, S1-S2 no S3-S4. Chest wall nontender with palpation RESP: Clear lungs throughout bilateral, no crackles, wheeze, rhonchi, symmetrical chest rise, nonlabored, able to speak in full sentences ABD: Soft, NT, ND, no masses, positive bowel tones EXT: Pulses +2x4, no dependent edema MS: Normal tone -4 extremities, nontender, no obvious deformities, full range of motion NEURO: CN II through CN XII grossly intact, motor strength 5/5, gait WNL PSYCH: A+O x3, pleasant affect, appropriate speech, mood, insight and judgment SKIN: Normal turgor, normal texture, no lesions, no rashes, brisk cap refill, even hair distribution Laboratory Laboratory Tests Test 12/30/17 20:40 12/30/17 23:46 12/31/17 02:30 White Blood Count 7.6 Red Blood Count 4.51 Hemoglobin 14.5 Hematocrit 41.7 Mean Corpuscular Volume 92.4 Mean Corpuscular Hemoglobin 32.2 Mean Corpuscular Hemoglobin Concent 34.8 Red Cell Distribution Width 12.6 Platelet Count 323 Mean Platelet Volume 7.0 Neutrophils (%) (Auto) 39.1 Lymphocytes (%) (Auto) 52.1 Monocytes (%) (Auto) 6.1 Eosinophils (%) (Auto) 2.1 Basophils (%) (Auto) 0.6 Neutrophils # (Auto) 3.0 Lymphocytes # (Auto) 4.0 Monocytes # (Auto) 0.5 Eosinophils # (Auto) 0.2 Basophils # (Auto) 0.0 CBC Comment DIFF FINAL Differential Comment Prothrombin Time 10.4 Prothromb Time International Ratio 1.0 Activated Partial Thromboplast Time 26.3 D-Dimer Quantitative (PE/DVT) LESS THAN 0.19 Blood Urea Nitrogen 12 Creatinine 1.10 Random Glucose 103 Total Protein 7.2 Albumin 3.7 Calcium Level 9.1 Magnesium Level 2.0 Alkaline Phosphatase 51 Aspartate Amino Transf (AST/SGOT) 18 Alanine Aminotransferase (ALT/SGPT) 28 Total Bilirubin 0.4 Sodium Level 141 Potassium Level 3.5 Chloride Level 110 Carbon Dioxide Level 19.7 Anion Gap 11 Estimat Glomerular Filtration Rate 63 Total Creatine Kinase 123 113 94 Creatine Kinase MB 0.7 0.8 Troponin I LESS THAN 0.02 LESS THAN 0.02 LESS THAN 0.02 Lipase 130 Result Diagram: 12/30/17203912/30/172039 Imaging Last 48 hours Impressions Chest X-Ray 12/30/172014 Signed Impressions: CONCLUSION: No acute cardiopulmonary abnormality is identified. Course EKG Sinus rhythm, no ST-T segment change Caprini VTE Risk Assessment Caprini VTE Risk Assessment: No/Low Risk (score <= 1) Caprini Risk Assessment Model Point Value = 1 Point Value = 2 Point Value = 3 Point Value = 5 Age 41-60 Minor surgery BMI > 25 kg/m2 Swollen legs Varicose veins or History of unexplained or recurrent spontaneous Oral contraceptives or hormone replacement Sepsis (< 1 month) Serious lung disease, including pneumonia (< 1 month) Abnormal pulmonary function Acute myocardial infarction Congestive heart failure (< 1 month) History of inflammatory bowel disease Medical patient at bed rest Age 61-74 Arthroscopic surgery Major open surgery (> 45 min) Laparoscopic surgery (> 45 min) Malignancy Confined to bed (> 72 hours) Immobilizing plaster cast Central venous access Age >= 75 History of VTE Family history of VTE Factor V Leiden Prothrombin [id number] Lupus anticoagulant Anticardiolipin antibodies Elevated serum homocysteine Heparin-induced thrombocytopenia Other congenital or acquired thrombophilia Stroke (< 1 month) Elective arthroplasty Hip, pelvis, or leg fracture Acute spinal cord injury (< 1 month) Prophylaxis Regimen Total Risk Factor Score Risk Level Prophylaxis Regimen 0-1 Low Early ambulation 2 Moderate Order ONE of the following: *Sequential Compression Device (SCD) *Heparin 5000 units SQ BID 3-4 Higher Order ONE of the following medications: *Heparin 5000 units SQ TID *Enoxaparin/Lovenox 40 mg SQ daily (WT < 150 kg, CrCl > 30 mL/min) *Enoxaparin/Lovenox 30 mg SQ daily (WT < 150 kg, CrCl > 10-29 mL/min) *Enoxaparin/Lovenox 30 mg SQ BID (WT < 150 kg, CrCl > 30 mL/min) AND/OR *Sequential Compression Device (SCD) 5 or more Highest Order ONE of the following medications: *Heparin 5000 units SQ TID (Preferred with Epidurals) *Enoxaparin/Lovenox 40 mg SQ daily (WT < 150 kg, CrCl > 30 mL/min) *Enoxaparin/Lovenox 30 mg SQ daily (WT < 150 kg, CrCl > 10-29 mL/min) *Enoxaparin/Lovenox 30 mg SQ BID (WT < 150 kg, CrCl > 30 mL/min) AND *Sequential Compression Device (SCD) Assessment and Plan Assessment and Plan #1 Atypical chest pain-admitted to chest pain center. Ruled out with 3 sets of EKGs, cardiac enzymes, monitor on telemetry overnight. Will be seen and evaluated by Dr. Levi White. Discussed the likelihood of completing exercise stress test later this morning after evaluation by door glass installer. Patient agreeable to plan of care and verbalizes understanding. #2 Tobacco use-encouraged stress importance of tobacco cessation. Instructed to quit smoking. Discussed importance of establishing with a primary care provider for yearly physical, laboratory studies, and preventative medical care. Gloria Ricci Dec 31, 2017 08:30
[2017-12-31] MEDS ORDERED: SODIUM CHLORIDE 0.9% FLUSH 10 ML FLUSH IV FLUSH SCH (09:00)
[2017-12-31] MEDS ORDERED: ASPIRIN 325 MG TAB PO SCH (09:00)
--- NOTE | 2017-12-31 10:54 | HHI.DCPOC ---
Discharge Care Plan Diagnosis: (1) Atypical chest pain Goals to Promote Your Health * To prevent worsening of your condition and complications * To maintain your health at the optimal level Directions to Meet Your Goals Take your medications as prescribed Follow your dietary instruction Follow activity as directed Keep your appointments as scheduled Take your immunizations and boosters as scheduled If your symptoms worsen call your PCP, if no PCP go to Urgent Care Center or Emergency Room Smoking is Dangerous to Your Health. Avoid second hand smoke Call the 24-hour hour crisis hotline for domestic abuse at Gloria Ricci Dec 31, 2017 10:54
--- NOTE | 2017-12-31 13:15 | EKG ---
Date Performed: 12/31/2017 Time Performed: 03:04:35 PTAGE: 52 years EKG: Sinus rhythm NORMAL ECG PREVIOUS TRACING : 12/30/2017 23.48 Since previous tracing, no significant change noted DOCTOR: Levi White Interpretating Date/Time 12/31/2017 13:14:51
--- NOTE | 2017-12-31 13:15 | TR ---
Date Performed: 12/31/2017 Time Performed: 10:33:39 DOCTOR: Levi White DRUG LIST: CLINICAL HISTORY: REASON FOR TEST: REASON FOR ENDING: OBSERVATION: CONCLUSION: Alvarez protocol completed. Stopped sec to exceeding target heart rate and leg fatigue . Maximum KZ=912 Target HR [id number]=337.0% Maximum YO=432/58. No reprod chest discomfort. No st t seg ment changes. Artifact V6 most of exam. During peak and immediate into recovery 3 sets of cuplets and infrequent PVCs. Normal bp response. Good exercise tolernance. Recovery quick and unremarkable, no PVC once heart rate decreased. COMMENTS: Conclusion: Normal treadmill exercise. No evidence of ischemia.
--- NOTE | 2017-12-31 13:18 | EKG ---
Date Performed: 12/30/2017 Time Performed: 23:48:37 PTAGE: 52 years EKG: Sinus rhythm POSSIBLE LEFT ATRIAL ENLARGEMENT LOW QRS VOLTAGE IN PRECORDIAL LEADS BORDERLINE ECG PREVIOUS TRACING : 12/30/2017 20.12 Since previous tracing, no significant change noted DOCTOR: Levi White Interpretating Date/Time 12/31/2017 13:16:43
--- NOTE | 2017-12-31 13:19 | EKG ---
Date Performed: 12/30/2017 Time Performed: 20:12:35 PTAGE: 52 years EKG: Sinus rhythm NORMAL ECG PREVIOUS TRACING : 10/23/2016 10.20 Since previous tracing, no significant change noted DOCTOR: Levi White Interpretating Date/Time 12/31/2017 13:18:37
== END 2017-12-31 12:02 | disposition home or self-care (01) ==
LOC: NEPC 19:40 → NEDA 22:19 → NEPHCDU 12-31 00:05
DX: R07.89 Other chest pain (principal); R06.02 Shortness of breath; J44.9 Chronic obstructive pulmonary disease, unspecified; K21.9 Gastro-esophageal reflux disease without esophagitis; F17.210 Nicotine dependence, cigarettes, uncomplicated; Z85.41 Personal history of malignant neoplasm of cervix uteri; Z87.11 Personal history of peptic ulcer disease
CPT/HCPCS: 71045; 80053; 82550; 82552; 83690; 83735; 84484; 85025; 85379; 85610; 85730; 93005; 93017; 96374; 96375; 99285; G0378; J1885; J2270